=== PATIENT | male | born 1990 | race Caucasian/White ===

== ENCOUNTER 2016-08-31 21:57 | Emergency (ER) | payer OTHER ==
[2016-08-31 22:16] VITALS: RESP 16; TEMP 98.2
[2016-08-31] MEDS ORDERED: OXYMETAZOLINE 30 ML NASAL SPRAY ONE (22:26)
[2016-08-31] MEDS ORDERED: SILVER NITRATE APPLICATOR 1 APPL TP ONE (22:27)
--- NOTE | 2016-08-31 22:58 | EDPHY ---
H & P Stated Complaint: nosebleed "all day", no known cause Time Seen by Provider: 08/31/16 22:21 HPI/ROS: HPI The patient presents with epistaxis from left nostril all day. It has been intermittent with blood clots. He denies any trauma to the area. He does have a history of septal deviation. He has no prior history of nose bleed. He tried pinching his nose without any improvement in his symptoms.. REVIEW OF SYSTEMS Constitutional: No fever, no chills. Eyes: No discharge. ENT: No sore throat. Skin: No rashes. Neurological: No headache. PMHx: Healthy PHYSICAL General Appearance: Alert, no distress Eyes: Pupils equal and round no pallor or injection ENT, Mouth: Mucous membranes moist, no active bleeding from nose Respiratory: Breathing comfortably Neurological: A&O, moves all extremities Skin: Warm and dry, no rashes Musculoskeletal: Neck is supple non tender Extremities: symmetrical, full range of motion Psychiatric: Patient is oriented X 3, there is no agitation Source: Patient Exam Limitations: No limitations - Personal History Current Tetanus/Diphtheria Vaccine: Yes Current Tetanus Diphtheria and Acellular Pertussis (TDAP): Yes - Medical/Surgical History Hx Asthma: No Hx Chronic Respiratory Disease: No Hx Diabetes: No Hx Cardiac Disease: No Hx Renal Disease: No Hx Cirrhosis: No Hx Alcoholism: No Hx HIV/AIDS: No Hx Splenectomy or Spleen Trauma: No Other PMH: deviated septum - Social History Smoking Status: Light smoker Constitutional: Initial Vital Signs Temperature (C) 36.8 C 08/31/16 22:12 Heart Rate 96 08/31/16 22:12 Respiratory Rate 16 08/31/16 22:12 Blood Pressure 143/85 H 08/31/16 22:12 O2 Sat (%) 96 08/31/16 22:12 O2 Delivery Mode Room Air Allergies/Adverse Reactions: No Known Allergies Allergy (Unverified 08/31/16 22:16) Home Medications: Medication Instructions Recorded NK [No Known Home Meds] 08/31/16 Medical Decision Making Differential Diagnosis: This is a 26-year-old male who presents with 1 day of epistaxis from left nostril. Upon arrival to the ER, nasal clamp was placed. After this her is bleeding has mostly subsided. I had him blow his nose to remove any clots and administered Afrin. He then use the nasal clamp for an additional 10 minutes. On re-examination of his nose, there is no ongoing bleeding and no source of bleeding could be identified. He could possibly have bleeding from Kiesselbach' s plexus versus other anterior nosebleed. I doubt posterior epistaxis. He will be discharged with instructions to use Vaseline as needed, nasal clamps and Afrin. I have given him follow-up information for ENT provider referral management liaison. - Data Points Medications Given: Discontinued Medications Oxymetazoline HCl (Afrin Nasal [place]) 2 sprays [facility]NOW ONE Stop: 08/31/16 23:04 Last Admin: 08/31/16 22:30 Dose: 2 spray Departure - Departure Disposition: Home, Routine, Self-Care Clinical Impression: Acute anterior epistaxis Condition: Good Instructions: Nosebleed (ED) Referrals: Silvina Noriega PA [Physician Roll Examiner] - As per Instructions
[2016-08-31] MEDS ORDERED: OXYMETAZOLINE 30 ML NASAL SPRAY EACHNARE ONE (23:03)
[2016-08-31 23:13] VITALS: BP 138/87; PULSE 74; O2SAT 95
== END 2016-08-31 23:13 | disposition home or self-care (01) ==
DX: R04.0 Epistaxis (principal); F17.200 Nicotine dependence, unspecified, uncomplicated